=== PATIENT | female | born 1950 | race Caucasian/White ===

== ENCOUNTER → 2016-05-26 | Outpatient (CLI) | payer OTHER ==
[~2016-05-26] MED LIST: ALBU1AER9 INH; CEPH500C2 PO; DIPH25CA37 PO; EZET10TA63 PO; IBUP-103 PO; NAPR1TAB9 PO; PRLSR20 PO
[2016-05-26 15:26] LABS: ALT/SGPT 30 U/L (12-78); AST/SGOT 19 U/L (15-37); BLOOD UREA NITROGEN 15 mg/dl (7-18); BUN/CREATININE RATIO 13.6 (10-20); CALCIUM 9.1 mg/dl (8.5-10.1); CARBON DIOXIDE 31 mmol/L (21-32); CHLORIDE 106 mmol/L (98-107); CHOLESTEROL 196 mg/dl (0-200); GLUCOSE 94 mg/dl (70-99); SODIUM 143 mmol/L (136-145); TRIGLYCERIDES 119 mg/dl (0-150); VERY LOW DENSITY LIPOPROT CALC 24 mg/dl
[2016-05-26 15:32] LABS: CHOLESTEROL/HDL RATIO 3.5; HDL CHOLESTEROL 56 mg/dl; LDL CHOLESTEROL CALCULATED 116 mg/dl
== END | disposition home or self-care (01) ==
LOC: C.LABMFLN 08:28
PROVIDERS: ATTEND Family Medicine
DX: E78.00 Pure hypercholesterolemia, unspecified (principal); I10 Essential (primary) hypertension

== ENCOUNTER → 2016-05-27 | Outpatient (CLI) | payer OTHER ==
[2016-05-27 13:31] LABS: URINE APPEARANCE CLOUDY (CLEAR); URINE BILIRUBIN NEG (NEG); URINE COLOR YELLOW; URINE EPITHELIAL CELL AUTO >30 /lpf (0-5); URINE NITRITE NEG (NEG); URINE SPECIFIC GRAVITY 1.014 (1.000-1.030); UROBILINOGEN NEG (NEG)
[2016-05-27 13:37] LABS: MANUAL MICROSCOPIC REQUIRED? NO; REVIEW REQ? NO
== END | disposition home or self-care (01) ==
LOC: C.LABMFLN 08:59
PROVIDERS: ATTEND Family Medicine
DX: R32 Unspecified urinary incontinence (principal)

== ENCOUNTER → 2016-12-29 | Outpatient (CLI) | payer OTHER ==
[2016-12-29 13:34] LABS: ALT/SGPT 32 U/L (12-78); AST/SGOT 20 U/L (15-37); BLOOD UREA NITROGEN 16 mg/dl (7-18); BUN/CREATININE RATIO 15.5 (10-20); CALCIUM 9.2 mg/dl (8.5-10.1); CARBON DIOXIDE 29 mmol/L (21-32); CHLORIDE 103 mmol/L (98-107); CREATININE 1.06 mg/dl (0.60-1.20); GLUCOSE 104 mg/dl (70-99); POTASSIUM 3.9 mmol/L (3.5-5.1); SODIUM 141 mmol/L (136-145)
[2016-12-29 13:37] LABS: CHOLESTEROL 171 mg/dl (0-200); HDL CHOLESTEROL 57 mg/dl; LDL CHOLESTEROL CALCULATED 90 mg/dl; TRIGLYCERIDES 122 mg/dl (0-150); VERY LOW DENSITY LIPOPROT CALC 24 mg/dl
== END | disposition home or self-care (01) ==
LOC: C.LABMFLN 07:26
PROVIDERS: ATTEND Family Medicine
DX: E78.00 Pure hypercholesterolemia, unspecified (principal); I10 Essential (primary) hypertension

== ENCOUNTER → 2017-06-22 | Outpatient (CLI) | payer OTHER ==
[2017-06-22 13:34] LABS: ALT/SGPT 43 U/L (12-78); AST/SGOT 22 U/L (15-37); BLOOD UREA NITROGEN 16 mg/dl (7-18); CALCIUM 8.7 mg/dl (8.5-10.1); CARBON DIOXIDE 31 mmol/L (21-32); CREATININE 1.08 mg/dl (0.60-1.20); GLUCOSE 91 mg/dl (70-99); POTASSIUM 4.1 mmol/L (3.5-5.1); SODIUM 140 mmol/L (136-145)
[2017-06-22 13:45] LABS: CHOLESTEROL 180 mg/dl (0-200); LDL CHOLESTEROL CALCULATED 104 mg/dl
== END | disposition home or self-care (01) ==
LOC: C.LABMFLN 07:09
PROVIDERS: ATTEND Family Medicine
DX: E78.00 Pure hypercholesterolemia, unspecified (principal); I10 Essential (primary) hypertension; L63.0 Alopecia (capitis) totalis

== ENCOUNTER → 2017-09-30 | Outpatient (CLI) | payer OTHER ==
--- NOTE | 2017-09-30 15:33 | DIAGNOSTIC IMAGING REPORT ---
THORACIC SPINE 3 VIEWS, LUMBAR SPINE 5 VIEWS HISTORY: M54.6 Thoracic back painM54.16 Lumbar radiculopathy, [id number]. COMPARISON: None. FINDINGS: There is no fracture. Alignment of the thoracic spine is intact. Mild S-shaped scoliosis of the thoracic spine. Paraspinal soft tissues are unremarkable. Mild disc space narrowing within the upper to mid thoracic spine with small endplate osteophytes. The sacrum is intact. Mild disc space narrowing at L4-L5 and L5-S1. Mild facet degenerative changes within the lower lumbar spine. 4 mm of anterolisthesis of L4 and L5. IMPRESSION: No fracture within the thoracic or lumbar spine. Mild degenerative changes as described above. Electronically signed by: Mk Fenton M.D. 09/30/2017 3:31 PM Dictated Date/Time: 09/30/2017 3:28 PM
--- NOTE | 2017-09-30 15:33 | DIAGNOSTIC IMAGING REPORT ---
THORACIC SPINE 3 VIEWS, LUMBAR SPINE 5 VIEWS HISTORY: M54.6 Thoracic back painM54.16 Lumbar radiculopathy, [id number]. COMPARISON: None. FINDINGS: There is no fracture. Alignment of the thoracic spine is intact. Mild S-shaped scoliosis of the thoracic spine. Paraspinal soft tissues are unremarkable. Mild disc space narrowing within the upper to mid thoracic spine with small endplate osteophytes. The sacrum is intact. Mild disc space narrowing at L4-L5 and L5-S1. Mild facet degenerative changes within the lower lumbar spine. 4 mm of anterolisthesis of L4 and L5. IMPRESSION: No fracture within the thoracic or lumbar spine. Mild degenerative changes as described above. Electronically signed by: Mk Fenton M.D. 09/30/2017 3:31 PM Dictated Date/Time: 09/30/2017 3:28 PM
== END | disposition home or self-care (01) ==
LOC: C.RAD 14:46
PROVIDERS: ATTEND Family Medicine
DX: M54.6 Pain in thoracic spine (principal); M54.16 Radiculopathy, lumbar region